=== PATIENT | male | born 1970 | race Caucasian/White ===

== ENCOUNTER 2018-01-10 08:49 | Emergency (ER) | payer MEDICAID ==
[~2018-01-10] VITALS: Ht 170.2 cm; Wt 95.3 kg
[2018-01-10 08:52] VITALS: Ht 170.2 cm; Wt 95.3 kg
[2018-01-10 10:34] LABS: BASOPHIL % 0.4 % (0-2); PLATELET COUNT 246 x10^3mcL (130-400); RED CELL DISTRIBUTION WIDTH 12.6 % (11.5-14.5)
[2018-01-10 10:35] LABS: CALCIUM 8.6 mg/dL (8.5-10.1); CARBON DIOXIDE 29.3 mmol/L (21-32); CHLORIDE SERUM 102 mmol/L (98-107); CREATININE SERUM 0.7 mg/dL (0.7-1.3); GFR1 > 60 mL/min; GLUCOSE SERUM 154 mg/dL (74-106); POTASSIUM SERUM 4.2 mmol/L (3.5-5.1); SODIUM SERUM 137 mmol/L (136-145)
[2018-01-10 10:40] LABS: ALBUMIN 3.6 g/dL (3.4-5.0); ALKALINE PHOSPHATASE 69 U/L (46-116); ALT/SGPT 63 U/L (16-63); AST/SGOT 21 U/L (15-37); BILIRUBIN TOTAL 0.38 mg/dL (0.20-1.00); TOTAL PROTEIN, SERUM 7.8 g/dL (6.4-8.2)
[2018-01-10 10:42] LABS: AMPHETAMINE QUAL UR NONE DETECTED (See below)
[2018-01-10 11:27] VITALS: BP 130/78
== END 2018-01-10 11:27 | disposition home or self-care (01) ==
LOC: ED 08:49
PROVIDERS: Emergency Medicine
DX: J06.9 Acute upper respiratory infection, unspecified (principal); R55 Syncope and collapse; H93.11 Tinnitus, right ear
CPT/HCPCS: 36415; 83880; J7030; Q0092; Q0162

== ENCOUNTER 2018-08-21 02:45 | Emergency (ER) | payer SELFPAY ==
[~2018-08-21] VITALS: Ht 165.1 cm; Wt 95.7 kg
[2018-08-21 02:57] VITALS: BP 143/96; Ht 165.1 cm; Wt 95.7 kg
== END 2018-08-21 04:00 | disposition home or self-care (01) ==
LOC: ED 02:45
DX: S90.32XA Contusion of left foot, initial encounter (principal); W23.0XXA Caught, crushed, jammed, or pinched between moving objects, initial encounter; Y93.89 Activity, other specified; Y92.89 Other specified places as the place of occurrence of the external cause; Y99.8 Other external cause status
CPT/HCPCS: Q0092

== ENCOUNTER 2018-08-23 10:43 | Emergency (ER) | payer OTHER ==
[~2018-08-23] VITALS: Ht 170.2 cm; Wt 111.1 kg
[2018-08-23 11:10] VITALS: Ht 170.2 cm; Wt 111.1 kg
[2018-08-23 14:24] VITALS: BP 144/85
== END 2018-08-23 14:24 | disposition home or self-care (01) ==
LOC: ED 10:43
DX: S93.602D Unspecified sprain of left foot, subsequent encounter (principal); S90.31XD Contusion of right foot, subsequent encounter; E11.9 Type 2 diabetes mellitus without complications; X58.XXXD Exposure to other specified factors, subsequent encounter